=== PATIENT | female | born 1995 | race African-American/Black ===

== ENCOUNTER 2016-11-27 23:56 | Emergency (ER) | payer OTHER ==
[2016-11-28] MEDS ORDERED: Ibuprofen 200 MG TAB ONE (00:18)
--- NOTE | 2016-11-28 00:39 | PICIS ---
[facility] EMERGENCY RECORD TRIAGE (00:00 EPIE) TRIAGE NOTES: Pt states that she is having lower left back pain. 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 (00:00 EPIE) PATIENT: NAME: Richa Herman, AGE: 21, GENDER: female, : Sat 1995, TIME OF GREET: FriNov 27, 2016 23:56, PREFERRED LANGUAGE: Welsh, ETHNICITY: Not or , ECODE BILLING MAP: [facility], SSN: [id number], Zip Code: [address], KG WEIGHT: 89.81, PHONE: , , , PERSON ID: [id number], PCP: Akira, Larry. (00:00 EPIE) COMPLAINT: LOWER LEFT SIDE BACK PAIN. (00:00 EPIE) ADMISSION: URGENCY: 4 Non Urgent, ADMISSION SOURCE: Home, TRANSPORT: CAR, BED: TRIAGE. (00:00 EPIE) TRIAGE SCREENING: Patient denies suicidal ideation, Patient denies presence of domestic violence. (00:01 EPIE) TREATMENTS IN PROGRESS: Treatments given Prehospital: motrin @ 1930. (00:01 EPIE) PROVIDERS: TRIAGE NURSE: Alka Bahena RN. (00:00 EPIE) PREVIOUS VISIT ALLERGIES: No Known Drug Allergies. (00:00 EPIE) No Known Drug Allergies. (00:01 EPIE) KNOWN ALLERGIES No Known Drug Allergies CURRENT MEDICATIONS (00:01 EPIE) None VITAL SIGNS (00:03 EPIE) VITAL SIGNS: BP: 133/84, Pulse: 81, Resp: 20 (Non-Labored), Temp: 98.1 (Oral), Pain: 10, O2 sat: 97 on Room Air, Time: 11/28/2016 00:03. NURSING ASSESSMENT: BACK (00:16 EPIE) CONSTITUTIONAL: Patient arrives ambulatory, Gait steady, History obtained from patient, Patient appears comfortable, Patient cooperative, Patient alert, Oriented to person, place and time, Skin warm, Skin dry, Skin normal in color, Mucous membranes pink, Mucous membranes moist, Patient is well-groomed, Pt states that she is having lower left back pain. 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 Reports no urinary complaints. PAIN: aching pain, DIFFUSE LOWER BACK CONCETRATED TO LEFT LOWER BACK, Onset of pain 11/26/2016, on a scale 0-10 patient rates pain as 10, Pt is calm with NAD. BACK: Back assessment findings include tenderness to, lower back. NECK: Neck assessment findings include trachea midline. NURSING PROCEDURE: DISCHARGE NOTE (00:26 EPIE) DISCHARGE: Patient discharged to home, ambulating without assistance, friend driving, accompanied by friend, Summary of Care &a-1R&a+25V*p+0X*i6727G*c202B*c15G*c2P*p-0X&a-25V&a+1R Name: Richa Herman : 1995 F21 MedRec: [id number] AcctNum: [id number] Prepared: FriNov 28, 2016 00:37 by Interface Page 1 of 5 pMD [facility] EMERGENCY RECORD printed/ provided, Discharge instructions given to patient, Simple or moderate discharge teaching performed, Prescriptions given and instructions on side effects given, Name of prescription(s) given: motrin, flexeril, Above person(s) verbalized understanding of discharge instructions and follow-up care. BELONGINGS: Belongings and valuables with patient upon arrival to the Emergency Department include:, Belongings and valuables with patient at time of discharge include:, Belongings remain with patient, Valuables remain with patient. MEDICATION ADMINISTRATION SUMMARY Drug Name: ibuprofen, Dose Ordered: 800 mg, Route: Oral, Status: Given, Time: 00:25 11/28/2016, Detailed record available in Medication Service section. MEDICATION SERVICE (00:25 [facility]) ibuprofen: Order: ibuprofen - Dose: 800 mg : Oral Ordered by: Hema De Oliveira MD Entered by: Hema De Oliveira MD [facility] Nov 28, 2016 00:17 , Acknowledged by: Alka Bahena RN [facility] Nov 28, 2016 00:18 Documented as given by: Alka Bahena RN [facility] Nov 28, 2016 00:25 Patient, Medication, Dose, Route and Time verified prior to administration. Amount given: 400mg, Site: Medication administered P.O., Correct patient, time, route, dose and medication confirmed prior to administration, Patient advised of actions and side-effects prior to administration, Allergies confirmed and medications reviewed prior to administration, Dosage decreased to 400mg Per ERMD request due to patient having motrin @ 2000. HPI BACK (00:17 BPIC) CHIEF COMPLAINT: Patient presents for evaluation of pain, to the lower back. HISTORIAN: History provided by patient. 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 pain then worsened over the next 2 days. LOCATION: No radiation back to front, No radiation to the groin, Pain moved from, some radiation to buttock/thigh area. QUALITY: Described as similar to previous episodes. SEVERITY: Maximum severity of symptoms severe, Currently symptoms are moderate. TIME COURSE: Gradual onset of symptoms, There has been no change in the patient's symptoms over time. ASSOCIATED WITH: No associated bladder incontinence, No associated bowel incontinence, No associated dysuria, No associated fever, No associated inability to ambulate, No associated motor weakness, No associated numbness, No associated problems with urination. EXACERBATED BY: Patient's condition exacerbated by &a-1R&a+25V*p+0X*p8470I*c202B*c15G*c2P*p-0X&a-25V&a+1R Name: Richa Herman : 1995 F21 MedRec: [id number] AcctNum: [id number] Prepared: [facility] Nov 28, 2016 00:37 by Interface Page 2 of 5 pMD [facility] EMERGENCY RECORD extension, Patient's condition exacerbated by flexion, Patient's condition exacerbated by movement, Patient's condition exacerbated by rotation. RELIEVED BY: Patient's condition relieved by nothing. ROS (00:17 BPIC) CONSTITUTIONAL: Negative constitutional review of systems. EYES: Negative eye review of systems. ENT: Negative ears, nose, throat review of systems. CARDIOVASCULAR: Negative cardiovascular review of systems. RESPIRATORY: Negative respiratory review of systems. GI: Negative gastrointestinal review of systems. MUSCULOSKELETAL: Negative musculoskeletal review of systems. SKIN: Negative skin review of systems. PSYCHIATRIC: Negative psychiatric review of systems. NOTES: All other ROS is negative except as listed in HPI. PAST MEDICAL HISTORY MEDICAL HISTORY: No past medical history, Flu vaccine not up to date, Tetanus immunization up to date. (00:01 EPIE) FEMALE SURGICAL HISTORY: Patient has no surgical history. (00:01 EPIE) PSYCHIATRIC HISTORY: No previous psychiatric history, no previous inpatient psychiatric admissions, no previous emergency department psychiatric evaluations. (00:01 EPIE) SOCIAL HISTORY: Lives at home, with family. (00:01 EPIE) NOTES: I have reviewed and agree with the PMH/PSxH/FamHx/SocHx obtained by the nurse. (00:17 BPIC) PHYSICAL EXAM (00:17 BPIC) CONSTITUTIONAL: Vital signs reviewed, Patient afebrile, Pulse normal, Blood pressure normal, Respiratory rate normal, Patient appears non toxic, Patient appears pain free, Patient alert and oriented to person, place and time. HEAD: Head exam included findings of head atraumatic, normocephalic. EYES: Eye exam included findings of eyelids normal to inspection, Pupils equally round and reactive to light, Extraocular muscles intact. ENT: ENT exam normal. NECK: Neck exam included findings of normal range of motion, Trachea midline. RESPIRATORY CHEST: Respiratory exam included findings of no respiratory distress, Breath sounds clear, Chest exam included findings of chest movement symmetrical, Chest expansion equal. CARDIOVASCULAR: Cardiovascular exam included findings of heart rate regular rate and rhythm, Heart sounds normal. BACK: Back exam included findings of normal inspection, &a-1R&a+25V*p+0X*s5176F*c202B*c15G*c2P*p-0X&a-25V&a+1R Name: Richa Herman : 1995 F21 MedRec: [id number] AcctNum: [id number] Prepared: FriNov 28, 2016 00:37 by Interface Page 3 of 5 pMD [facility] EMERGENCY RECORD Tenderness, Paraspinal musculature. LOWER EXTREMITY: Lower extremity exam included findings of inspection normal, no abrasions, no contusions, Motor strength normal, Sensation intact, no edema, Negative straight leg raise. Some pain with hip flexion on the affected side. NEURO: Neuro exam findings include patient oriented to person, place and time, Speech normal. PSYCHIATRIC: Psychiatric exam included findings of patient oriented to person place and time, Normal affect. EVENTS TRANSFER: Triage to Emergency Triage. (FriNov 28, 2016 00:00 EPIE) Emergency Triage to Emergency Room -05. (00:01 EPIE) Removed from Emergency Emergency Room -05. (00:29 EPIE) DOCTOR NOTES (00:17 BPIC) NOTES: Patient present with low back pain. DDX includes degenerative disc disease, radiculopathy, lumbago, epidural abcess/hematoma, pyriformis syndrome, sacroilitis. There are no neuro deficits or signs of central nervous system involvement. Will discharge with symptomatic treatment and have close O/P follow up. TEXT: Patient present with low back pain. DDX includes degenerative disc disease, radiculopathy, lumbago, epidural abcess/hematoma, pyriformis syndrome, sacroilitis. There are no neuro deficits or signs of central nervous system involvement. Will discharge with symptomatic treatment and have close O/P follow up. PROBLEM LIST No recorded problems DIAGNOSIS (00:19 BPIC) FINAL: PRIMARY: low back pain, ADDITIONAL: sciatica. DISPOSITION PATIENT: Disposition Type: Discharge, Disposition: *Discharge Home, Condition: Good. (00:19 BPIC) Patient left the department. (00:29 EPIE) INSTRUCTION (00:19 BPIC) DISCHARGE: BACK PAIN W/ SCIATICA. FOLLOWUP: [facility], Clinic, Clinic, [address] [facility] [address], , Occupational Health, Clinic, Clinic, [address] [facility] [address], . SPECIAL: Thank you for choosing [facility] Emergency Department for your care today! Please follow up with your primary doctor in the next 2-3 days. Return to the &a-1R&a+25V*p+0X*f3487O*c202B*c15G*c2P*p-0X&a-25V&a+1R Name: Richa Herman : 1995 F21 MedRec: [id number] AcctNum: [id number] Prepared: Lilia Nov 28, 2016 00:37 by Interface Page 4 of 5 pMD [facility] EMERGENCY RECORD emergency department with any other worsening or emergent symptoms. God bless you!. PRESCRIPTION (00:19 BPIC) Flexeril: TABLET : 5 mg : ORAL : Quantity: 5 Unit: mg Route: ORAL Schedule: every 8 hours PRN Dispense: 30 Unit: tab(s) May substitute. Refills: No Refills . NOTES: No Refills. ibuprofen: TABLET : 800 mg : ORAL : Quantity: 1 Unit: tab(s) Route: ORAL Schedule: every 8 hours PRN Dispense: 30 Unit: tab(s) May substitute. Refills: No Refills . NOTES: ^s=No Refills No Refills. IMAGING *DISCHARGE INSTRUCTIONS RECEIPT: Image captured from scanner. (00:28 EPIE) Page 2 added. Image captured from scanner. (00:29 EPIE) *SUPPLY CHARGE SHEET: Image captured from scanner. (00:29 EPIE) Nevarez: BPIC=MD Alvino, Hema EPIE=SAMIRA Bahena, Alka &a-1R&a+25V*p+0X*p7157B*c202B*c15G*c2P*p-0X&a-25V&a+1R Name: Richa Herman : 1995 F21 MedRec: [id number] AcctNum: [id number] Prepared: Lilia Nov 28, 2016 00:37 by Interface Page 5 of 5 pMD MTDD
--- NOTE | 2016-11-28 00:39 | ERRECORD ---
[facility] EMERGENCY RECORD HPI BACK (00:17 BPIC) CHIEF COMPLAINT: Patient presents for evaluation of pain, to the lower back. HISTORIAN: History provided by patient. 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 pain then worsened over the next 2 days. LOCATION: No radiation back to front, No radiation to the groin, Pain moved from, some radiation to buttock/thigh area. QUALITY: Described as similar to previous episodes. SEVERITY: Maximum severity of symptoms severe, Currently symptoms are moderate. TIME COURSE: Gradual onset of symptoms, There has been no change in the patient's symptoms over time. ASSOCIATED WITH: No associated bladder incontinence, No associated bowel incontinence, No associated dysuria, No associated fever, No associated inability to ambulate, No associated motor weakness, No associated numbness, No associated problems with urination. EXACERBATED BY: Patient's condition exacerbated by extension, Patient's condition exacerbated by flexion, Patient's condition exacerbated by movement, Patient's condition exacerbated by rotation. RELIEVED BY: Patient's condition relieved by nothing. ROS (00:17 BPIC) CONSTITUTIONAL: Negative constitutional review of systems. EYES: Negative eye review of systems. ENT: Negative ears, nose, throat review of systems. CARDIOVASCULAR: Negative cardiovascular review of systems. RESPIRATORY: Negative respiratory review of systems. GI: Negative gastrointestinal review of systems. MUSCULOSKELETAL: Negative musculoskeletal review of systems. SKIN: Negative skin review of systems. PSYCHIATRIC: Negative psychiatric review of systems. NOTES: All other ROS is negative except as listed in HPI. PAST MEDICAL HISTORY MEDICAL HISTORY: No past medical history, Flu vaccine not up to date, Tetanus immunization up to date. (00:01 EPIE) FEMALE SURGICAL HISTORY: Patient has no surgical history. (00:01 EPIE) PSYCHIATRIC HISTORY: No previous psychiatric history, no previous inpatient psychiatric admissions, no previous emergency department psychiatric evaluations. (00:01 EPIE) SOCIAL HISTORY: Lives at home, with family. (00:01 EPIE) NOTES: I have reviewed and agree with the PMH/PSxH/FamHx/SocHx obtained by the nurse. (00:17 BPIC) &a-1R&a+25V*p+0X*y8013R*c202B*c15G*c2P*p-0X&a-25V&a+1R Name: Richa Herman : 1995 F21 MedRec: [id number] AcctNum: [id number] Prepared: Lilia Nov 28, 2016 00:37 by Interface Page 1 of 3 pMD [facility] EMERGENCY RECORD KNOWN ALLERGIES No Known Drug Allergies CURRENT MEDICATIONS (00:01 EPIE) None VITAL SIGNS (00:03 EPIE) VITAL SIGNS: BP: 133/84, Pulse: 81, Resp: 20 (Non-Labored), Temp: 98.1 (Oral), Pain: 10, O2 sat: 97 on Room Air, Time: 11/28/2016 00:03. PHYSICAL EXAM (00:17 BPIC) CONSTITUTIONAL: Vital signs reviewed, Patient afebrile, Pulse normal, Blood pressure normal, Respiratory rate normal, Patient appears non toxic, Patient appears pain free, Patient alert and oriented to person, place and time. HEAD: Head exam included findings of head atraumatic, normocephalic. EYES: Eye exam included findings of eyelids normal to inspection, Pupils equally round and reactive to light, Extraocular muscles intact. ENT: ENT exam normal. NECK: Neck exam included findings of normal range of motion, Trachea midline. RESPIRATORY CHEST: Respiratory exam included findings of no respiratory distress, Breath sounds clear, Chest exam included findings of chest movement symmetrical, Chest expansion equal. CARDIOVASCULAR: Cardiovascular exam included findings of heart rate regular rate and rhythm, Heart sounds normal. BACK: Back exam included findings of normal inspection, Tenderness, Paraspinal musculature. LOWER EXTREMITY: Lower extremity exam included findings of inspection normal, no abrasions, no contusions, Motor strength normal, Sensation intact, no edema, Negative straight leg raise. Some pain with hip flexion on the affected side. NEURO: Neuro exam findings include patient oriented to person, place and time, Speech normal. PSYCHIATRIC: Psychiatric exam included findings of patient oriented to person place and time, Normal affect. MEDICATION ADMINISTRATION SUMMARY Drug Name: ibuprofen, Dose Ordered: 800 mg, Route: Oral, Status: Given, Time: 00:25 11/28/2016, Detailed record available in Medication Service section. DOCTOR NOTES (00:17 BPIC) NOTES: Patient present with low back pain. DDX includes degenerative disc disease, radiculopathy, lumbago, epidural abcess/hematoma, pyriformis syndrome, sacroilitis. There are no neuro deficits or signs of central nervous system involvement. Will &a-1R&a+25V*p+0X*j0236O*c202B*c15G*c2P*p-0X&a-25V&a+1R Name: Richa Herman : 1995 F21 MedRec: [id number] AcctNum: [id number] Prepared: [facility] Nov 28, 2016 00:37 by Interface Page 2 of 3 pMD [facility] EMERGENCY RECORD discharge with symptomatic treatment and have close O/P follow up. TEXT: Patient present with low back pain. DDX includes degenerative disc disease, radiculopathy, lumbago, epidural abcess/hematoma, pyriformis syndrome, sacroilitis. There are no neuro deficits or signs of central nervous system involvement. Will discharge with symptomatic treatment and have close O/P follow up. PROBLEM LIST No recorded problems DIAGNOSIS (00: BPIC) FINAL: PRIMARY: low back pain, ADDITIONAL: sciatica. PRESCRIPTION (: BPIC) Flexeril: TABLET : 5 mg : ORAL : Quantity: 5 Unit: mg Route: ORAL Schedule: every 8 hours PRN Dispense: 30 Unit: tab(s) May substitute. Refills: No Refills . NOTES: No Refills. ibuprofen: TABLET : 800 mg : ORAL : Quantity: 1 Unit: tab(s) Route: ORAL Schedule: every 8 hours PRN Dispense: 30 Unit: tab(s) May substitute. Refills: No Refills . NOTES: ^s=No Refills No Refills. DISPOSITION PATIENT: Disposition Type: Discharge, Disposition: *Discharge Home, Condition: Good. (: BPIC) Patient left the department. (00:29 EPIE) Nevarez: BPIC=MD Alvino, Hema EPIE=SAMIRA Bahena, Alka &a-1R&a+25V*p+0X*g3401M*c202B*c15G*c2P*p-0X&a-25V&a+1R Name: Richa Herman : 1995 F21 MedRec: [id number] AcctNum: [id number] Prepared: Lilia Nov 28, 2016 00:37 by Interface Page 3 of 3 pMD MTDD
== END 2016-11-28 00:26 | disposition home or self-care (01) ==
LOC: NAV ERS 23:56
DX: M54.40 Lumbago with sciatica, unspecified side (principal)
CPT/HCPCS: 99283